=== PATIENT | male | born 1970 | race Caucasian/White ===

== ENCOUNTER 2018-01-20 19:56 | Emergency (ER) | payer SELFPAY ==
[2018-01-20 20:06] VITALS: BP 143/79; PULSE 67; RESP 20; TEMP 36.8; O2SAT 99
[2018-01-20] MEDS: Normal Saline 1,000 ML 1000 ML IV (20:20)
--- NOTE | 2018-01-20 20:22 | DI.CT_ITS ---
SYMPTOMS/DIAGNOSIS: RIGHT LOWER QUADRANT ABDOMINAL PAIN, VOMITING CT EXAMINATION OF THE ABDOMEN AND PELVIS: The study was carried out according to the usual protocol with intravenous administration of 100 cc of Omnipaque 350. No acute abnormality is noted in the lower thorax. The liver is normal. The gallbladder is normal. There are no stones or ductal dilatation. The pancreas, and spleen, and adrenals and kidneys are normal. There is no evidence of bowel obstruction or mucosal thickening. The appendix is normal. As visualized, the bladder is unremarkable. The reproductive organs as visualized are unremarkable. There is no evidence of free air or free fluid in the intraperitoneal space. No acute bony abnormality is seen. The soft tissues are unremarkable. There is no evidence of an aortic aneurysm. There is no evidence of an acute bony abnormality. SUMMARY: No evidence of an acute abdomen.
[2018-01-20 20:30] LABS: Abs Immature Grans 0.03 k/cumm (0.0-0.09); Absolute Eosinophil Count 0.21 k/cumm (0.0-0.7); Absolute Lymphocyte Count 3.79 k/cumm (1.2-3.4); Basophils % 0.3; Eosinophils % 1.8; HCT 48.1 % (40.0-50.0); HGB 16.6 g/dL (13.5-17.5); Immature Grans % 0.3; Lymphocytes % 32.5; Mean Corp. HGB Concentration 34.5 g/dL (32.0-36.0); Mean Corpuscular Hemoglobin 32.2 pg (27.0-33.0); Mean Corpuscular Volume 93.4 fL (80-95); Mean Platelet Volume 10.5 fL (8.0-11.0); Monocytes % 9.3; Neutrophils % 55.8; Platelet Count 213 x1000/uL (130-400); RBC 5.15 m/cumm (4.50-6.00); RBC Distribution Width 13.2 % (11.8-14.1); White Blood Cell Count 11.67 k/cumm (4.4-10.8)
[2018-01-20 20:31] LABS: Absolute Basophil Count 0.04 k/cumm (0.0-0.2); Absolute Monocyte Count 1.09 k/cumm (0.11-0.7); Absolute Neutrophil Count 6.51 k/cumm (1.2-6.7)
[2018-01-20 20:42] LABS: ALT 29 U/L (12-78); AST 19 U/L (15-37); Albumin 3.5 g/dL (3.4-5.0); Alkaline Phosphatase 77 U/L (46-116); Anion Gap 10.1 mmol/L (3-11); BUN 12 mg/dL (7-18); Bilirubin, Total 0.5 mg/dL (0.2-1.0); CO2 28.9 mmol/L (21.0-32.0); CREATININE 1.05 mg/dL (0.70-1.30); Calcium 8.9 mg/dL (8.5-10.1); Chloride 103 mmol/L (98-107); Glucose 126 mg/dL (70-100); Lipase 403 U/L (73-393); Potassium 3.7 mmol/L (3.5-5.1); Sodium 142 mmol/L (136-145); Total Protein 7.4 g/dL (6.4-8.2)
[2018-01-20] MEDS: Ondansetron 4 MG/2 ML VIAL IVP (20:48)
--- NOTE | 2018-01-20 22:01 | ED.GENADUL_ITS ---
Discharge Plan Disposition Patient Disposition: HOME Condition: Good Discharge Details Chief Complaint: Abd Prob Clinical Impression: Abdominal pain, Constipation Primary Care Provider: NONE,NONE ED Provider: Med Khan Home Meds and New Rx's Prescriptions: New dicyclomine 10 mg capsule 10 mg PO QID Qty: 14 RF: 0 ondansetron HCl [Zofran] 4 mg tablet 4 mg PO TID PRN (Reason: nausea and vomiting) 5 Days Qty: 14 RF: 0 docusate sodium [Colace] 100 mg capsule 100 mg PO DAILY Qty: 90 RF: 0 Discharge Instructions Instructions: Constipation (ED), Abdominal Pain (ED) Additional Instructions: Please take the medication as directed. Please drink 8-10 cups of water per day. If you notice any worsening of your symptoms, or any new symptoms such as vomiting, diarrhea, fever, chills, shortness of breath, chest pain, numbness, weakness, or fainting , please return immediately to the emergency department for reevaluation. Please follow up with your primary care provider as soon as possible for reassessment and reevaluation. As always, it was a pleasure participating in your medical care today. Medical Decision Making This is a 47-year-old male with no past medical or surgical history who presents for evaluation of right lower quadrant pain for the last 3 days. It appears to be colicky and crampy in nature. Patient has no pain in the right upper quadrant. He does have a small superficial burn from where he had been placing a heating pad. Heating pad unfortunately had not been helping. Patient's appetite is notably decreased. He does complain of some significant constipation. Physical exam does demonstrate notable reproducible right lower quadrant pain. Out of concern for an appendicitis versus other acute intra- abdominal pathology we will get a CT scan to evaluate for any acute intra- abdominal process. We will control the patient's pain and rehydrate. 11:12pm Patient's laboratory workup has returned relatively benign. Minimally elevated white count 11.67, no bandemia. Electrolytes are normal, renal function is normal, lipase is minimally elevated at 403. Urinalysis shows minimal RBCs at 5 -10. No other significant laboratory abnormality. CT scan results demonstrate no evidence of urolithiasis, appendicitis, or acute intra-abdominal pathology. On reevaluation of the patient he has significantly improved and his clinical scenario. He has no reproducible tenderness on exam. He appears significantly improved after his initial medication and IV fluids. With a negative CT scan, a benign appearing laboratory workup, no signs of acute pathology, and a notably improved clinical presentation I do feel that he is safe for discharge home with close follow-up with PCP. We will get a new primary care provider for the patient. We discussed red flags for which patient is to return. We will give him stool softeners, as well as some Bentyl and Zofran. I have extensively reviewed the treatment plan and discharge instructions with the patient. I have addressed all patient concerns at this time. The patient was made aware of what symptoms to monitor for that would warrant a return to the emergency department. Discussed the plan with the patient, they demonstrate verbal understanding and agreement with our assessment and plan at this time. HPI General Date/Time Provider Initiated Documentation: 01/20/18 20:13 . HPI Narrative: This is a 47-year-old male with no past medical history who presents today for evaluation of abdominal pain. Patient states that for the last 3 days he has had pain in his right lower quadrant area. Been hurting so much that he has been using a rice pack on his right lower abdomen which is caused a small superficial burn. Patient states that the pain is crampy in sensation and severe at its worst. It comes and goes in severity. He has had associated vomiting, vomiting roughly once or twice per day. He also has associated constipation. He has been eating nothing because of his symptoms, last time he ate was yesterday. He denies any hematemesis, dysuria, fever, chills, chest pain, shortness of breath, numbness, tingling, weakness. There are no particular aggravating or relieving factors. He denies any previous abdominal surgeries. With the patient's hard stool he does note that he did have a small amount of bright red blood on his toilet paper when he wiped for his episode stool earlier, but no melanotic or sharron blood. No blood on the stool. Patient denies any history of colonoscopy. He takes no medications. He has no other complaints at this time. Related Data Home Medications Medication Instructions Recorded Confirmed dicyclomine 10 mg PO QID #14 cap 01/20/18 docusate sodium [Colace] 100 mg PO DAILY #90 cap 01/20/18 ondansetron HCl [Zofran] 4 mg PO TID PRN 5 Days #14 tab 01/20/18 Previous Rx's Medication Instructions Recorded dicyclomine 10 mg PO QID #14 cap 01/20/18 docusate sodium [Colace] 100 mg PO DAILY #90 cap 01/20/18 ondansetron HCl [Zofran] 4 mg PO TID PRN 5 Days #14 tab 01/20/18 Allergies Allergy/AdvReac Type Severity Reaction Status Date / Time Penicillins Allergy Unverified 01/20/18 20:55 General Stated Complaint: Abd Prob TONI: 3 Review of Systems Review of Systems All systems reviewed & are unremarkable except as noted in HPI and below PFSH Social History Smoking/Tobacco Use Status: Current every day Exam Narrative Exam Narrative: 1.Const: Well-nourished, Well-developed, appearing stated age 2.Eyes: PERRL, no conjunctival injection, and symmetrical lids. 3.ENT: Atraumatic external nose and ears. Moist MM. Neck: Symmetric, trachea midline, No thyromegaly. 4.CVS: +S1/S2, No murmurs or gallops. Peripheral pulses 2+ and equal in all extremities. Brisk capillary refill in all extremities. 5.RESP: Unlabored respiratory effort. Clear to auscultation bilaterally. No wheezes rales or rhonchi 6.GI: Soft, nondistended, no guarding or rebound, mild to moderate right lower quadrant abdominal tenderness on exam. Bowel sounds are present but decreased. No flank or CVA tenderness. Negative obturator and psoas sign. Negative heel strike test. Mild superficial first-degree burn over the patient's right lower quadrant of his abdomen. No scaling of the skin. No signs of discharge or fluid collection. The area of burn is synonymous with the area where his heated rice bag was placed. Negative Contreras sign. 7.MSK: Normocephalic/Atraumatic, Extremities w/o deformity or ttp No cyanosis or clubbing, Normal movement of all extremities 8.Skin: Warm, Dry. No rashes or lesions. 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 Sensation grossly intact, no focal neurologic deficits. 10.Psych: (AAO) x3. Appropriate mood and affect Course Vital Signs Temperature 36.8 C 01/20/18 20:06 Pulse 67 01/20/18 20:06 Respiratory Rate 20 01/20/18 20:06 Blood Pressure 143/79 H 01/20/18 20:06 Pulse Oximetry 99 01/20/18 20:06 Temperature 36.8 C 01/20/18 20:06 Temperature Source Skin 01/20/18 20:06 Pulse 67 01/20/18 20:06 Respiratory Rate 20 01/20/18 20:06 Respiratory Effort Non-Labored 01/20/18 20:51 Blood Pressure 143/79 H 01/20/18 20:06 Blood Pressure Position Sitting 01/20/18 20:06 Pulse Oximetry 99 01/20/18 20:06 Oxygen Delivery Method Room Air 01/20/18 20:06 Oxygen Flow Rate 0 01/20/18 20:06 Pain Level 6 01/20/18 20:06 Lab/Test Results Lab/Test Results: Laboratory Tests Range/Units 01/20/18 01/20/18 20:20 20:20 WBC (4.4-10.8) k/cumm 11.67 H RBC (4.50-6.00) m/cumm 5.15 Hgb (13.5-17.5) g/dL 16.6 Hct (40.0-50.0) % 48.1 MCV (80-95) fL 93.4 MCH (27.0-33.0) pg 32.2 MCHC (32.0-36.0) g/dL 34.5 RDW (11.8-14.1) % 13.2 Plt Count (130-400) x1000/uL 213 MPV (8.0-11.0) fL 10.5 Immature Gran % 0.3 Neutrophils % 55.8 Lymphocytes % 32.5 Monocytes % 9.3 Eosinophils % 1.8 Basophils % 0.3 Absolute Neutrophils (1.2-6.7) k/cumm 6.51 Absolute Lymphocytes (1.2-3.4) k/cumm 3.79 H Absolute Monocytes (0.11-0.7) k/cumm 1.09 H Absolute Eosinophils (0.0-0.7) k/cumm 0.21 Absolute Basophils (0.0-0.2) k/cumm 0.04 Sodium (136-145) mmol/L 142 Potassium (3.5-5.1) mmol/L 3.7 Chloride (98-107) mmol/L 103 Carbon Dioxide (21.0-32.0) mmol/L 28.9 Anion Gap (3-11) mmol/L 10.1 BUN (7-18) mg/dL 12 Creatinine (0.70-1.30) mg/dL 1.05 Estimated GFR/1.73 m2 (mL/min/1.73m2) >= 60.00 Glucose (70-100) mg/dL 126 H Calcium (8.5-10.1) mg/dL 8.9 Total Bilirubin (0.2-1.0) mg/dL 0.5 AST (15-37) U/L 19 ALT (12-78) U/L 29 Alkaline Phosphatase (46-116) U/L 77 Total Protein (6.4-8.2) g/dL 7.4 Albumin (3.4-5.0) g/dL 3.5 Lipase (73-393) U/L 403 H
[2018-01-20] MEDS: Omnipaque 350 MG/ML 100 ML BTL IJ (22:07)
[2018-01-20 22:14] VITALS: BP 131/65; PULSE 55; RESP 18; TEMP 36.9; O2SAT 97
[2018-01-20 22:17] LABS: Bilirubin Negative (Negative); Blood Moderate (Negative); Clarity Clear; Glucose Negative (Negative); Ketones Negative (Negative); Leukocyte Esterase Negative (Negative); Nitrite Negative (Negative); Urobilinogen 0.2 EU/dL (Up TO 0.2)
[2018-01-20 22:35] LABS: Bacteria Rare HPF (Negative); C & S Indicated? No; Casts Negative LPF (Negative); Crystals Negative HPF (Negative); Epithelial Cells Negative HPF (Negative); Mucus Negative (Negative); Other Cells Negative (Negative); WBC Negative HPF (0-5)
--- NOTE | 2018-01-20 22:42 | DI.VRAD_ITS ---
EXAM: CT Abdomen and Pelvis With Intravenous Contrast EXAM DATE/TIME: 01/20/2018 8:24 PM CLINICAL HISTORY: 47 years old, male; Pain; Abdominal pain; Localized; Right lower quadrant (rlq); Patient HX: Rlq pain with vomiting TECHNIQUE: Axial computed tomography images of the abdomen and pelvis with intravenous and oral contrast. Coronal and sagittal reformatted images were created and reviewed. COMPARISON: No relevant prior studies available. FINDINGS: Lower thorax: No acute findings. ABDOMEN: Liver: Normal. No mass. Gallbladder and bile ducts: Normal. No calcified stones. No ductal dilation. Pancreas: Normal. No ductal dilation. Spleen: Normal. No splenomegaly. Adrenals: Normal. No mass. Kidneys and ureters: Normal. No hydronephrosis. Stomach and bowel: Normal. No obstruction. No mucosal thickening. Appendix: A normal appendix is identified. PELVIS: Bladder: Unremarkable as visualized. Reproductive: Unremarkable as visualized. ABDOMEN and PELVIS: Intraperitoneal space: Normal. No free air. No significant fluid collection. Bones/joints: No acute fracture. No dislocation. Soft tissues: Unremarkable. Vasculature: Normal. No abdominal aortic aneurysm. Lymph nodes: Normal. No enlarged lymph nodes. IMPRESSION: No evidence of acute abdominopelvic pathology. Dictated and Authenticated by: Nate Contreras MD. Ordering:DANIELA LUNA MD
[2018-01-20 23:14] VITALS: BP 133/73; PULSE 50; RESP 20; TEMP 36.9; O2SAT 96
[2018-01-20] MEDS: Dicyclomine 10 MG CAP PO (23:36)
== END 2018-01-20 23:38 | disposition home or self-care (01) ==
PROVIDERS: Emergency Provider Student in an Organized Health Care Education/Training Program
DX: K59.00 Constipation, unspecified (principal)
CPT/HCPCS: 36415; 80053; 83690; 96361; 96374; 99285; 74177; 81003; 81015; 85025; 99284; J2405; J3490

== ENCOUNTER 2018-10-18 13:19 | Emergency (ER) | payer SELFPAY ==
[2018-10-18 13:23] VITALS: BP 134/73; PULSE 62; RESP 16; TEMP 37.2; O2SAT 96
--- NOTE | 2018-10-18 13:43 | ED.GENADUL_ITS ---
Discharge Plan Disposition Patient Disposition: HOME Condition: Stable Discharge Details Chief Complaint: Cellulitis Clinical Impression: Ingrown toenail of right foot with infection Primary Care Provider: None,None ED Provider: James Hermosillo Home Meds and New Rx's Prescriptions: New cephalexin 500 mg tablet 500 mg PO QID 5 Days Qty: 20 RF: 0 Discharge Instructions Instructions: Paronychia (ED) Additional Instructions: Continue to perform Epson salt soaks 4 times daily for the next 4 days. As tolerated by discomfort you may peel the edges of the skin back from the nail. You should call the podiatry office on Saturday for arrangement of follow-up appointment. Return immediately to the emergency department for any new or significant worsening of symptoms or not improving the next 48 hours. Referrals: Se Velazquez DPM [[facility] STAFF PHYSICIAN] - 1 week (Call the office for arrangement of follow-up appointment) Discharge Data Discharge Date/Time-TO BE ENTERED AT DEPARTURE: 10/18/18 15:30 Medical Decision Making Patient presenting the emergency department for chief complaint of right toe pain. Patient states that one week ago he noted some significant discomfort to his right toe that is worsened specifically over the past 2 to 3 days. Patient had been doing intermittent Epson salt soaks with no improvement. Patient does state proximally 3 to 4 weeks ago he did suffer a puncture wound to the bottom of his foot that was appropriately cleaned and is healing well but is unsure of his tetanus status and also requesting a tetanus shot. Physical exam shows significant erythema and swelling to the distal toe with streaking redness to the dorsal aspect of the base of the great toe and distal dorsal foot. Exam of the puncture wound shows well-healed healing puncture wound with no purulence, no induration, no erythema, no signs of infection given significant swelling and induration to the great toe plan to do radiological imaging rule out any osteomyelitis. Review of radiological imaging shows soft tissue swelling, given overlying cellulitis through the base of the foot I do not feel that it is prudent to perform digital block or anesthesia of the toe for any toenail excision at this point. I do feel that patient should be placed on antibiotics before co nsideration of partial nail removal. Patient placed on Keflex after discussion of penicillin allergy which she states was a kid and otherwise he has not had any other reaction to antibiotics but does not know which antibiotics he is taking in the past. Patient's tetanus was updated. Return precautions were discussed. After discussion of diagnosis and plan of care patient has no further needs, questions, or concerns and states clear understanding to return to the emergency department for any worsening symptoms. HPI General Mode of arrival: ambulatory . Date/Time Provider Initiated Documentation: 10/18/18 13:21 . Limitations to Documentation: no limitations . Information obtained by: patient . History of Present Illness 47 year old M presents to the emergency department with the chief complaint of toe infection, described as moderate, with intensity rated at 10 (with palpation of distal L great toe). Quality is described as sharp, and is localized to the left and lower extremity (great toe). Patient reports no radiation. Patient started experiencing this week(s) (1 week) and it has been constant. No relieving factors improve symptom(s), Movement worsens symptoms . Patient notes no other symptoms.. Patient did receive the following treatments prior to arrival, other (epsom salts) Related Data Home Medications Medication Instructions Recorded Confirmed cephalexin 500 mg PO QID 5 Days #20 tab 10/18/18 Previous Rx's Medication Instructions Recorded cephalexin 500 mg PO QID 5 Days #20 tab 10/18/18 Allergies Allergy/AdvReac Type Severity Reaction Status Date / Time Penicillins Allergy Unknown Unverified 10/18/18 13:31 General Stated Complaint: Cellulitis TONI: 3 Review of Systems Constitutional Reports system reviewed and no additional complaints, except as docu, Denies chills, Denies fever(s) and Denies weakness Comments: has been in good health otherwise, no chronic conditions Cardiovascular Reports system reviewed and no additional complaints, except as docu and Denies chest pain Musculoskeletal Reports joint swelling (and redness to L great toe) and Denies numbness Neurologic Denies numbness and Denies weakness Hematologic/Lymphatic Denies easy bleeding, Denies easy bruising and Denies lymphadenopathy ON LICENSE OF [facility] Social History Smoking/Tobacco Use Status: Current every day Alcohol Intake: current Alcohol Intake frequency: holidays/special occasions only Alcohol type: beer Drug use: Daily Substance use type: marijuana Do you feel safe at home: Yes Do you feel safe in your relationship?: Yes Exam Const General: cooperative, healthy appearing, comfortable, no acute distress, well developed and well groomed Nutritional Appearance: average body habitus Orientation: alert and oriented x3 Resp Effort & Inspection: normal respiratory effort and able to speak in complete sentences Auscultation: clear to auscultation bilaterally Cardio Rate: regular rate Rhythm: regular rhythm Heart Sounds: S1 normal, S2 normal, no click, no gallops, no murmurs and no rubs Pulses: posterior tibial pulses present Skin Rashes: no rashes Trauma: puncture (healed to ball of L foot) Neuro Motor: muscle tone normal throughout Sensory Exam: normal double simultaneous stimulation Extrem General: no clubbing, cyanosis or edema and no pedal edema Right lower extremity: normal capillary refill and foot (with lesion to L distal toe lateral to nail, no drainage or bleeding) Details: normal capillary refill, tenderness, warmth and edema; no cyanosis Course Vital Signs Temperature 37.2 C 10/18/18 13:23 Pulse 62 10/18/18 13:23 Respiratory Rate 16 10/18/18 13:23 Blood Pressure 134/73 10/18/18 13:23 Pulse Oximetry 96 10/18/18 13:23 Temperature 37.2 C 10/18/18 13:23 Temperature Source Temporal Artery Scan 10/18/18 13:23 Pulse 62 10/18/18 13:23 Respiratory Rate 16 10/18/18 13:23 Respiratory Effort Non-Labored 10/18/18 13:28 Blood Pressure 134/73 10/18/18 13:23 Blood Pressure Position Sitting 10/18/18 13:23 Pulse Oximetry 96 10/18/18 13:23 Oxygen Delivery Method Room Air 10/18/18 13:23 Oxygen Flow Rate 0 10/18/18 13:23 Pain Level 8 10/18/18 13:23
--- NOTE | 2018-10-18 14:07 | DI.RAD_ITS ---
SYMPTOM/DIAGNOSIS: GREAT TOE INFECTION RIGHT FOOT: Three views. No acute fracture, dislocation, lytic or sclerotic lesion is seen. No radiographic findings are seen to suggest acute osteomyelitis. There does appear to be soft tissue swelling of the great toe. No radiopaque foreign bodies are seen in the soft tissues. IMPRESSION: Soft tissue swelling about the great toe. No radiographic findings to suggest osteomyelitis.
[2018-10-18] MEDS: Cephalexin 500 MG CAP PO (15:14)
--- NOTE | 2018-10-18 15:50 | DI.VRAD_ITS ---
EXAM: XR Right Foot Complete EXAM DATE/TIME: 10/18/2018 2:08 PM CLINICAL HISTORY: 47 years old, male; Pain; Foot and toes; Right; Patient HX: ? Infected big toe, swelling and redness extending into metatarsals. TECHNIQUE: Imaging protocol: XR Right foot. Views: 3 or more views. COMPARISON: No relevant prior studies available. FINDINGS: Bones/joints: There is no obvious osteomyelitis of the right great toe. There is no fracture or dislocation. The bone mineralization is normal. Soft tissues: There soft tissue swelling of the right foot and great toe. IMPRESSION: Soft tissue swelling of the right foot and great toe. No obvious osteomyelitis. Dictated and Authenticated by: Mireya Conway MD. Ordering:RUY Ramirez MD
== END 2018-10-18 15:30 | disposition home or self-care (01) ==
PROVIDERS: Emergency Provider Nurse Practitioner Family
DX: L03.115 Cellulitis of right lower limb (principal); L60.0 Ingrowing nail
CPT/HCPCS: 90471; 99284; 73630

== ENCOUNTER 2019-11-27 14:30 | Emergency (ER) | payer SELFPAY ==
[2019-11-27 14:35] VITALS: BP 170/95; PULSE 68; RESP 20; TEMP 36.6; O2SAT 99
[2019-11-27] MEDS: EPINEPHrine 1 MG/ML AMP pres-free 0.3 MG IM (14:38)
[2019-11-27] MEDS: diphenhydrAMINE 50 MG/ML VIAL IVP (14:40)
[2019-11-27] MEDS: methylPREDNISolone SUCC 125 MG VIAL IVP (14:40)
[2019-11-27] MEDS: FAMOTIDINE 20 MG/50 ML BAG 200 MG IVPB (14:45)
[2019-11-27 14:52] VITALS: BP 142/76; PULSE 54; RESP 24; O2SAT 97
[2019-11-27 15:01] VITALS: BP 144/68; PULSE 53; RESP 22; O2SAT 96
--- NOTE | 2019-11-27 15:02 | ED.GENADUL_ITS ---
Discharge Plan Disposition Patient Disposition: HOME Condition: Stable Discharge Details Chief Complaint: Allergic Clinical Impression: Anaphylaxis due to hymenoptera venom Primary Care Provider: None,None ED Provider: Kurtis Camp Home Meds and New Rx's Prescriptions: New diphenhydramine HCl [Benadryl Allergy] 25 mg tablet 25 mg PO TID PRNQty: 14 RF: 0 prednisone 20 mg tablet 40 mg PO DAILY Qty: 8 RF: 0 epinephrine [EpiPen 2-Ilia] 0.3 mg/0.3 mL auto-injector 0.3 mg IM ONCE PRN (Reason: anaphylaxis) Qty: 1 RF: 0 Discharge Instructions Instructions: Anaphylaxis (ED) Additional Instructions: Please use Benadryl 25 mg every 8 hours for next 3 days. Take prednisone as prescribed. Use EpiPen if you are stung and have anaphylactic reaction in the future. Please contact your primary care physician to arrange follow-up. Return to the ER for any worsening or new concerning symptoms. Discharge Data Discharge Date/Time-TO BE ENTERED AT DEPARTURE: 11/27/19 18:48 Medical Decision Making -- 48-year-old male presents after bee sting to his left lower lip with swollen lip, lightheadedness and sensation of throat feeling itchy. Concern for acute anaphylaxis. Patient in critical condition on arrival. Patient was given IM epinephrine, Solu-Medrol, Benadryl and Pepcid as well as IV fluid bolus. -- Patient reassessed multiple times and has had significant improvement in swelling and itchiness feels much better. -- Patient observed in the emergency department for 4 hours and remains symptom- free with no return of swelling. Plan to discharge on Benadryl, prednisone and with an EpiPen. HPI General Mode of arrival: ambulatory . Date/Time Provider Initiated Documentation: 11/27/19 14:38 . Limitations to Documentation: no limitations . Information obtained by: patient . HPI Narrative: 48-year-old male presents with chief complaint of bee sting to his left lower lip with swollen lip that occurred just prior to arrival. Swelling is severe. Worsening. No modifiers. Patient notes associated lightheadedness and sensation of throat feeling itchy. Patient denies shortness of breath. Related Data Home Medications Medication Instructions Recorded Confirmed diphenhydramine HCl [Benadryl 25 mg PO TID PRN #14 tab 11/27/19 Allergy] epinephrine [EpiPen 2-Ilia] 0.3 mg IM ONCE PRN #1 each 11/27/19 prednisone 40 mg PO DAILY #8 tab 11/27/19 Previous Rx's Medication Instructions Recorded diphenhydramine HCl [Benadryl 25 mg PO TID PRN #14 tab 11/27/19 Allergy] epinephrine [EpiPen 2-Ilia] 0.3 mg IM ONCE PRN #1 each 11/27/19 prednisone 40 mg PO DAILY #8 tab 11/27/19 Allergies Allergy/AdvReac Type Severity Reaction Status Date / Time venom-wasp Allergy Severe Swelling/Ed Unverified 11/27/19 14:49 luis Penicillins Allergy Unknown Unverified 11/27/19 14:49 General Stated Complaint: Allergic TONI: 1 Review of Systems Narrative: Review of systems limited secondary to acuity of condition Constitutional Constitutional: Denies fever(s) ENT Ears, Nose, Mouth, and Throat: Reports as per HPI and Reports dizziness Cardiovascular Cardiovascular: Denies chest pain Respiratory Respiratory: Reports as per HPI Gastrointestinal Gastrointestinal: Denies vomiting Integumentary/Breasts Skin/Breast: Denies rash Neurologic Neurologic: Reports dizziness [facility] Social History Smoking/Tobacco Use Status: Current every day Alcohol Intake: current Alcohol Intake frequency: holidays/special occasions only Alcohol type: beer Drug use: Daily Substance use type: marijuana Do you feel safe at home: Yes Do you feel safe in your relationship?: Yes Exam Const General: cooperative HENMT Face and sinus: other (Left cheek swollen) Mouth: moist mucous membranes, lip abnormal (Swelling) and other Throat: posterior oropharynx normal Eyes Conjunctivae: normal conjunctivae Sclera: normal sclerae Neck Neck: trachea midline and supple Resp Auscultation: clear to auscultation bilaterally, no rales, no rhonchi and no wheezes Cardio Jugular venous pressure: no JVD Rate: regular rate and not tachycardic Rhythm: regular rhythm GI Palpation: soft, not firm, no guarding, no masses, not rigid and nontender Skin General skin exam: no rashes or lesions noted Neuro General: patient alert, patient awake and tone normal Extrem General: no edema Psych Appearance: grossly normal Mental Status: mental status grossly normal Course Vital Signs Vital signs: Vital Signs Temperature 36.6 C 11/27/19 14:35 Pulse 68 11/27/19 14:35 Respiratory Rate 20 11/27/19 14:35 Blood Pressure 170/95 H 11/27/19 14:35 Pulse Oximetry 99 11/27/19 14:35 Temperature 36.6 C 11/27/19 14:35 Temperature Source Skin 11/27/19 14:35 Pulse 53 L 11/27/19 15:01 Pulse Rhythm Regular 11/27/19 15:01 Pulse Strength Normal 11/27/19 15:01 Respiratory Rate 22 11/27/19 15:01 Respiratory Effort 11/27/19 15:01 Respiratory Depth Normal 11/27/19 15:01 Respiratory Pattern Normal 11/27/19 15:01 Blood Pressure 144/68 H 11/27/19 15:01 Blood Pressure Mean 93 11/27/19 15:01 Blood Pressure Position Sitting 11/27/19 14:35 Pulse Oximetry 96 11/27/19 15:01 Oxygen Delivery Method Room Air 11/27/19 15:01 Oxygen Flow Rate 0 11/27/19 15:01 Pain Level 2 11/27/19 15:01 Critical Care Time Critical Care Time Critical Care Time: Yes Total Critical Care Time: 45 Attestation: I spent greater than 45 minutes addressing this patient's immediate life threats. Please see MDM section of note. This time was spent engaged in work directly related to the patient's care, exclusive of separate procedures, and failure to initiate these interventions would have likely resulted in clinically significant or life threatening deterioration in the patient's condition.
[2019-11-27] MEDS: Lactated Ringers 500 ML IV (15:03)
[2019-11-27 15:22] VITALS: BP 131/53; PULSE 53; RESP 20; O2SAT 98
--- NOTE | 2019-11-27 16:48 | CMPROGNOTE_ITS ---
- If Service Date Differs Date of service: 11/27/19 Time of Service: 16:48 Care Management Progress Note CM coordinates referral to Joanne Chappell NP, on-call provider, of [facility], to assist patient in obtaining a follow-up appointment and establishing with a PCP. CM also faxes referral to [facility] to enlist their assistance in exploring insurance options with patient as he is currently uninsured.
[2019-11-27 17:04] VITALS: BP 102/80; PULSE 62; RESP 18; O2SAT 96
[2019-11-27 18:45] VITALS: BP 108/63; PULSE 61; RESP 18; O2SAT 97
--- NOTE | 2019-11-28 13:58 | NUR.NOTE ---
Nursing Note: Prednisone prescription not signed, prescription called in to [facility]
== END 2019-11-27 18:48 | disposition home or self-care (01) ==
PROVIDERS: Emergency Provider Student in an Organized Health Care Education/Training Program
DX: T63.451A Toxic effect of venom of hornets, accidental (unintentional), initial encounter (principal); T78.2XXA Anaphylactic shock, unspecified, initial encounter; R42 Dizziness and giddiness; R09.89 Other specified symptoms and signs involving the circulatory and respiratory systems; R22.0 Localized swelling, mass and lump, head; Z91.030 Bee allergy status
CPT/HCPCS: 96361; 96365; 96372; 96375; 99291; J0171; J1200; J2930

== ENCOUNTER 2020-04-11 19:12 | Emergency (ER) | payer SELFPAY ==
[2020-04-11] VITALS (14 sets, daily range): BP systolic 150–182; BP diastolic 85–111; PULSE 61–113; RESP 15–18; TEMP 36.7; O2SAT 87–96
--- NOTE | 2020-04-11 19:15 | DI.RAD_ITS ---
EXAM: XR PELVIS AP CLINICAL HISTORY: trauma. TECHNIQUE: 2D digital imaging was performed. COMPARISON: CR LUMBAR SPINE COMPLETE from 07/23/2017 FINDINGS: BONES: No acute fracture is present. No bony destructive lesion is seen. The iliac crest were not inc luded on this examination. JOINTS: No dislocation present. No joint space narrowing is present. SOFT TISSUE: Heterotopic ossification is seen superior to the right greater trochanter. IMPRESSION: Limited examination of the pelvis with no evidence of an acute fracture. DATA REPOSITORY: RADIATION DOSE DELIVERED:
--- NOTE | 2020-04-11 19:30 | DI.RAD_ITS ---
EXAM: XR FEMUR LT CLINICAL HISTORY: trauma, pain. TECHNIQUE: 2D digital imaging was performed. COMPARISON: No exams were available for comparison FINDINGS: BONES: No acute fracture is present. No bony destructive lesion is seen. Visualized portion of knee a nd hip joints are unremarkable. SOFT TISSUE: Normal. IMPRESSION: Unremarkable radiographs of the left femur. DATA REPOSITORY: RADIATION DOSE DELIVERED:
[2020-04-11 19:49] LABS: Abs Immature Grans 0.06 10^3/uL (0.0-0.06); Absolute Basophil Count 0.06 10^3/uL (0.0-0.2); Absolute Eosinophil Count 0.07 10^3/uL (0.0-0.7); Absolute Lymphocyte Count 2.73 10^3/uL (1.2-3.4); Absolute Neutrophil Count 10.98 10^3/uL (1.2-6.7); Basophils % 0.4; Eosinophils % 0.5; HCT 50.6 % (40.0-50.0); HGB 17.3 g/dL (13.5-17.5); Immature Grans % 0.4; Lymphocytes % 18.3; MCHC 34.2 % (32.0-36.0); MCV 93.5 fL (80-95); MPV 10.7 fL (8.0-11.0); Monocytes % 6.7; Neutrophils % 73.7; Nucleated RBC 0 %; Platelet Count 226 10^3/uL (130-400); RBC 5.41 10^6/uL (4.36-5.78); RDW 12.2 % (11.8-14.1); RDW-SD 42.4 fL
[2020-04-11] MEDS: Normal Saline Flush 10 ML SYR IVP (19:54)
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
[2020-04-11 20:00] LABS: Prothrombin Time 10.4 sec (9.3-11.0)
--- NOTE | 2020-04-11 20:05 | DI.VRAD_ITS ---
PROCEDURE INFORMATION: Exam: XR Left Femur Exam date and time: 04/11/2020 7:53 PM Age: 49 years old Clinical indication: Injury or trauma; Fall; Work related; Crushing; Upper leg; Left; Injury date: 04/11/20; Injury details: Leg caught between truck and plow TECHNIQUE: Imaging protocol: XR Left femur. Views: 2 views. COMPARISON: No relevant prior studies available. FINDINGS: Bones/joints: Femur is intact. Knee and hip joints are grossly normal. Normal osseous mineralization. Soft tissues: Unremarkable soft tissues. IMPRESSION: Negative exam. No acute fracture. Dictated and Authenticated by: Leander Taylor MD. Ordering:HUANG Nath MD
--- NOTE | 2020-04-11 20:06 | DI.VRAD_ITS ---
PROCEDURE INFORMATION: Exam: XR Pelvis Exam date and time: 04/11/2020 7:53 PM Age: 49 years old Clinical indication: Injury or trauma; Other: Leg caught between truck and plow; Work related; Blunt trauma (contusions or hematomas); Does not apply; Hip; Injury date: 04/11/20; Injury details: Thigh pain after leg caught between plow and truck TECHNIQUE: Imaging protocol: XR pelvis. Views: 1 or 2 view. COMPARISON: CT ABDOMEN PELVIS W 01/20/2018 9:40 PM FINDINGS: Bones/joints: Iliac crests are not well evaluated, due to patient body habitus. No acute fracture. Bilateral hip joint spacing and alignment are anatomic. Normal osseous mineralization. Soft tissues: Heterotopic ossification superior to the right greater trochanter. IMPRESSION: Limited exam of the pelvis with no evidence of acute fracture. Dictated and Authenticated by: Leander Taylor MD. Ordering:HUANG Nath MD
[2020-04-11 20:12] LABS: ALT 30 U/L (16-63); AST 22 U/L (15-37); Albumin 4.2 g/dL (3.4-5.0); Alkaline Phosphatase 89 U/L (46-116); Anion Gap 8.8 mmol/L (3-11); BUN 7 mg/dL (7-18); Bilirubin, Total 0.5 mg/dL (0.2-1.0); CO2 26.2 mmol/L (21.0-32.0); CREATININE 0.96 mg/dL (0.70-1.30); Calcium 9.2 mg/dL (8.5-10.1); Chloride 102 mmol/L (98-107); Glucose 104 mg/dL (74-106); Potassium 3.3 mmol/L (3.5-5.1); Sodium 137 mmol/L (136-145); Total Protein 8.1 g/dL (6.4-8.2)
[2020-04-11] MEDS: Nicotine 21 MG/24 HR PATCH TD (21:13)
== END 2020-04-11 21:24 ==
PROVIDERS: Emergency Provider Student in an Organized Health Care Education/Training Program
DX: S77.12XA Crushing injury of left thigh, initial encounter (principal); R60.0 Localized edema; W23.1XXA Caught, crushed, jammed, or pinched between stationary objects, initial encounter; R20.2 Paresthesia of skin
CPT/HCPCS: 36415; 73552; 80053; 86850; 86900; 86901; 96374; 96376; 99285; 72170; 85025; 85610

== ENCOUNTER 2021-01-24 12:40 | Emergency (ER) | payer SELFPAY ==
[2021-01-24 12:44] VITALS: BP 170/105; PULSE 60; RESP 16; TEMP 36.9; O2SAT 100
--- NOTE | 2021-01-24 13:00 | DI.RAD_ITS ---
Exam(s) XR FOOT LT COMPLETE EXAM: XR FOOT LT COMPLETE CLINICAL HISTORY: Medial pain. TECHNIQUE: 2D digital imaging was performed of the left foot. Three images were obtained. AP, obli que and lateral views were obtained. COMPARISON: No exams were available for comparison FINDINGS: BONES: No acute fracture is present. No bony destructive lesion is seen. Small plantar calcaneal spur . Small enthesophyte at the Achilles insertion site. JOINTS: No dislocation present. SOFT TISSUE: Soft tissue swelling of the forefoot IMPRESSION: Soft tissue swelling of the forefoot. DATA REPOSITORY: RADIATION DOSE DELIVERED:
--- NOTE | 2021-01-24 13:00 | DI.US_ITS ---
Exam(s) US LOWER EXTREMITY VENOUS LT EXAM: US LOWER EXTREMITY VENOUS LT CLINICAL HISTORY: intermittent swelling TECHNIQUE: Left lower extremity venous ultrasound performed using grayscale, color-flow, and spectra l Doppler analysis. COMPARISON: No exams were available for comparison FINDINGS: The left common femoral, femoral and popliteal veins demonstrate normal compressibility, augmentation , and color Doppler. The posterior tibial veins are patent. The saphenofemoral junction is unremarka ble. There is no evidence of a Singleton cyst. The soft tissues are unremarkable. IMPRESSION: No DVT. DATA REPOSITORY:
--- NOTE | 2021-01-24 13:07 | ED.GENADUL_ITS ---
Discharge Plan Disposition Patient Disposition: HOME Condition: Improving Discharge Details Clinical Impression: Acute gout of left foot Primary Care Provider: Unknown,Unknown ED Provider: Man Black Home Meds and New Rx's Prescriptions: New prednisone 50 mg tablet 50 mg PO DAILY 5 Days Qty: 5 RF: 0 colchicine 0.6 mg tablet 0.6 mg PO DAILY 3 Days Qty: 3 RF: 0 Continued diphenhydramine HCl [Benadryl Allergy] 25 mg tablet 25 mg PO TID PRNQty: 14 RF: 0 epinephrine [EpiPen 2-Ilia] 0.3 mg/0.3 mL auto-injector 0.3 mg IM ONCE PRN (Reason: anaphylaxis) Qty: 1 RF: 0 Discharge Instructions Instructions: Gout (ED) Additional Instructions: May use walking boot as needed for comfort. May apply ice to area to reduce discomfort. May use Tylenol as needed for pain. Take prednisone and colchicine as prescribed. Follow-up with regular doctor if not improving in 5 to 7 days time. Medical Decision Making 42-year-old male presents with the insidious onset of left foot pain over weeks time. He notes he did have a traumatic injury to the left leg last winter but seems to have recovered from this. Now with weeks of pain with weightbearing on the left foot. Denies new injury. Has not had a fever, redness, or violation of the skin in that area. He is in some pain and hypertensive on initial exam but otherwise unremarkable vital signs. Exam is reassuring. Would exclude un derlying occult fracture, gout, exclude DVT with history of swelling and consider arthritis as the etiology of the patient's pain. He had screening blood work, referred for x-ray, ultrasound. CRP and uric acid are elevated. Ultrasound negative for thrombus. X-ray without evidence of fracture. Most consistent with gouty arthritis. I will place him on 3 days of colchicine and a small burst of prednisone. Will offer short walking boot simply for comfort. He understands need for follow-up if not improving. HPI General Mode of arrival: ambulatory . Date/Time Provider Initiated Documentation: 01/24/21 12:41 . Limitations to Documentation: no limitations . Information obtained by: patient . History of Present Illness 50 year old M presents to the emergency department with the chief complaint of Left foot pain for weeks, no trauma, Quality is described as dull and constant, and is localized to the left and lower extremity. Patient reports no radiation. Patient started experiencing this week(s) and it has been intermittent. Rest improves symptom(s), Other factors that worsen symptoms (Weightbearing) . Patient notes rash; denies fever/chills. Patient did receive the following treatments prior to arrival, none Related Data Home Medications Medication Instructions Recorded Confirmed diphenhydramine HCl [Benadryl 25 mg PO TID PRN #14 tab 11/27/19 01/24/21 Allergy] epinephrine [EpiPen 2-Ilia] 0.3 mg IM ONCE PRN #1 each 11/27/19 01/24/21 colchicine 0.6 mg PO DAILY 3 Days #3 tab 01/24/21 prednisone 50 mg PO DAILY 5 Days #5 tab 01/24/21 Previous Rx's Medication Instructions Recorded diphenhydramine HCl [Benadryl 25 mg PO TID PRN #14 tab 11/27/19 Allergy] epinephrine [EpiPen 2-Ilia] 0.3 mg IM ONCE PRN #1 each 11/27/19 colchicine 0.6 mg PO DAILY 3 Days #3 tab 01/24/21 prednisone 50 mg PO DAILY 5 Days #5 tab 01/24/21 Allergies Allergy/AdvReac Type Severity Reaction Status Date / Time venom-wasp Allergy Severe Swelling/Ed Unverified 01/24/21 12:50 luis Penicillins Allergy Unknown Unverified 01/24/21 12:50 General Stated Complaint: Orthopedic TONI: 3 Review of Systems Narrative: Has had some intermittent swelling of the left foot. Traumatic injury to that leg this winter. No chest pain or shortness of breath. No rash or fever. No new injury. 8 systems reviewed and otherwise negative [facility] Social History Smoking/Tobacco Use Status: Current every day Tobacco Type: cigarettes Smoking risk assessment performed?: Yes Alcohol Intake: current Alcohol Intake frequency: holidays/special occasions only Alcohol type: beer Drug use: Daily Substance use type: marijuana Do you feel safe at home: Yes Do you feel safe in your relationship?: Yes Exam Narrative Exam Narrative: GEN: awake, alert, oriented 3. Pleasant, well groomed, interactive. HEAD: Normocephalic, atraumatic EYES: PERRL, EOMI NECK: Full ROM, no NNEKA, no menigismus CHEST/RESP: Nontender, clear to auscultation bilateral, no wheeze/rhonchi/rales CARDIOVASCULAR: RRR, no murmur, rub mp. 2+ Rad pulse bilateral EXT: Full ROM, trace edema left medial foot. Tender along left medial arch of the foot. No cords appreciated. 2+ DP bilaterally. No overlying erythema. Neuro: Grossly normal neurologic exam, conversant, interactive. Psych: Speech fluent, thoughts congruent, affect normal Course Vital Signs Vital signs: Vital Signs Temperature 36.9 C 01/24/21 12:44 Pulse 60 01/24/21 12:44 Respiratory Rate 16 01/24/21 12:44 Blood Pressure 170/105 H 01/24/21 12:44 Pulse Oximetry 100 01/24/21 12:44 Temperature 36.9 C 01/24/21 12:44 Temperature Source Skin 01/24/21 12:44 Pulse 60 01/24/21 12:44 Respiratory Rate 16 01/24/21 12:44 Respiratory Effort Non-Labored 01/24/21 12:44 Blood Pressure 170/105 H 01/24/21 12:44 Blood Pressure Position Sitting 01/24/21 12:44 Pulse Oximetry 100 01/24/21 12:44 Oxygen Delivery Method Room Air 01/24/21 12:44 Oxygen Flow Rate 0 01/24/21 12:44 Pain Level 7 01/24/21 12:44
[2021-01-24 13:20] LABS: Abs Immature Grans 0.03 10^3/uL (0.0-0.06); Absolute Basophil Count 0.06 10^3/uL (0.0-0.2); Absolute Eosinophil Count 0.16 10^3/uL (0.0-0.7); Absolute Monocyte Count 0.62 10^3/uL (0.1-0.8); Absolute Neutrophil Count 4.98 10^3/uL (1.2-6.7); Basophils % 0.7; Eosinophils % 1.8; HCT 54.6 % (40.0-50.0); HGB 18.4 g/dL (13.5-17.5); Immature Grans % 0.3; Lymphocytes % 33.1; MCH 31.8 pg (27.0-33.0); MCHC 33.7 % (32.0-36.0); MCV 94.3 fL (80-95); MPV 10.4 fL (8.0-11.0); Monocytes % 7.1; Nucleated RBC 0 %; Platelet Count 201 10^3/uL (130-400); RBC 5.79 10^6/uL (4.36-5.78); RDW 12.4 % (11.8-14.1); RDW-SD 43.5 fL; WBC 8.75 10^3/uL (4.4-10.8)
[2021-01-24 13:30] LABS: Anion Gap 4.9 mmol/L (3-11); BUN 7 mg/dL (7-18); C-Reactive Protein 0.38 mg/dL (0.0-0.3); CO2 32.1 mmol/L (21.0-32.0); Calcium 9.4 mg/dL (8.5-10.1); Chloride 103 mmol/L (98-107); Glucose 106 mg/dL (74-106); Potassium 3.8 mmol/L (3.5-5.1); Sodium 140 mmol/L (136-145); Uric Acid 7.6 mg/dL (3.5-7.2)
== END 2021-01-24 14:52 | disposition home or self-care (01) ==
PROVIDERS: Emergency Provider Emergency Medicine
DX: M10.9 Gout, unspecified (principal)
CPT/HCPCS: 80048; 99284; 73630; 84550; 85025; 86140; 93971; 99283

== ENCOUNTER 2022-12-25 04:40 | Emergency (ER) | payer SELFPAY ==
[2022-12-25 04:44] VITALS: BP 178/92; PULSE 72; RESP 16; TEMP 36.5; O2SAT 98
--- NOTE | 2022-12-25 04:45 | ED.GENADUL_ITS ---
Discharge Plan Disposition Patient Disposition: Home Condition: Good Discharge Details Clinical Impression: Infrapatellar bursitis of left knee Primary Care Provider: Unknown,Unknown ED Provider: Michelle Wheeler Home Meds and New Rx's Prescriptions: Continued diphenhydramine HCl [Benadryl Allergy] 25 mg tablet 25 mg PO TID PRNQty: 14 0RF epinephrine [EpiPen 2-Ilia] 0.3 mg/0.3 mL auto-injector 0.3 mg IM ONCE PRN (Reason: anaphylaxis) Qty: 1 0RF Rx Instructions: as a single dose Discharge Instructions Instructions: Knee Bursitis (ED) Additional Instructions: Leave the knee dressing on to decrease swelling and help the inflammation. Take ibuprofen 600 mg every 6 hours as needed for pain. Ice 20 minutes on and 20 minutes off for the next 48 hours should help as well. No ladder or stair climbing and when she keeps the leg straight. Use the crutches as needed. Recheck with your primary care doctor as needed. Return to ED for fever of 100.4 or above, any other concerns. Stand Alone Forms: Work Release Medical Decision Making Diagnosis discussed with the patient. He will take ibuprofen and ice the knee as discussed. Crutches with touchdown weightbearing. Avoid bending the left knee. Recheck with PCP as needed. HPI General Date/Time Provider Initiated Documentation: 12/25/22 04:44 . HPI Narrative: This 52-year-old male patient presents with a chief complaint of left knee pain that began yesterday. The patient states that the day before he was playing with his grandson on his knees sometime. He says at 1 point it felt like he was kneeling on the leg or with his left knee. 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 He did take some ibuprofen prior to going to work yesterday. He states that last night he started to get sore. He tried some ice without relief. He did not take any additional ibuprofen or Tylenol. He decided to come to the ER for evaluation. He points to his infrapatellar region as the area where it hurts. There is no fever or redness. Related Data Home Medications Medication Instructions Recorded Confirmed diphenhydramine HCl 25 mg tablet 25 mg PO TID PRN #14 tabs 11/27/19 12/25/22 (Benadryl Allergy) epinephrine 0.3 mg/0.3 mL 0.3 mg (0.3 mL) IM ONCE PRN 11/27/19 12/25/22 injection, auto-injector (EpiPen anaphylaxis #1 ea 2-Ilia) Previous Rx's Medication Instructions Recorded diphenhydramine HCl 25 mg tablet 25 mg PO TID PRN #14 tabs 11/27/19 (Benadryl Allergy) epinephrine 0.3 mg/0.3 mL 0.3 mg (0.3 mL) IM ONCE PRN 11/27/19 injection, auto-injector (EpiPen anaphylaxis #1 ea 2-Ilia) Allergies Allergy/AdvReac Type Severity Reaction Status Date / Time venom-wasp Allergy Severe Swelling/Ed Unverified 12/25/22 04:50 luis Penicillins Allergy Unknown Unverified 12/25/22 04:50 General TONI: 3 Review of Systems Musculoskeletal Musculoskeletal: Denies joint swelling and Denies numbness Integumentary/Breasts Skin/Breast: Denies erythema Neurologic Neurologic: Denies numbness PFSH All Active Problems Acute gout of left foot (Acute) Infrapatellar bursitis of left knee (Acute) Social History Smoking/Tobacco Use Status: Current every day Tobacco Type: cigarettes Smoking risk assessment performed?: Yes Alcohol Intake: current Alcohol Intake frequency: holidays/special occasions only Alcohol type: beer Drug use: Daily Substance use type: marijuana Do you feel safe at home: Yes Do you feel safe in your relationship?: Yes Exam Const General: healthy appearing Nutritional Appearance: well nourished Orientation: alert and awake [facility] Head: normocephalic and atraumatic Eyes Conjunctivae: conjunctivae normal Neck Neck: supple Resp Effort & Inspection: normal respiratory effort Skin General skin exam: other (PWD) Neuro General: patient alert and patient awake Motor: other (good ROM) Sensory Exam: no sensory deficits noted Extrem Left lower extremity: normal to inspection (no erythema though ant knee mildly warmer than R side) and knee ( Pt with TTP/fullness infrapatella; tight MCL,LCL,ACL,PCL, neg McM/ballotme)
[2022-12-25] MEDS: Ibuprofen 600 MG TAB PO (05:08)
== END 2022-12-25 05:19 | disposition home or self-care (01) ==
LOC: ER 05:24
PROVIDERS: Emergency Provider Emergency Medicine
DX: M70.52 Other bursitis of knee, left knee (principal); M10.9 Gout, unspecified
CPT/HCPCS: 99283

== ENCOUNTER 2024-02-04 18:28 | Emergency (ER) | payer SELFPAY ==
[2024-02-04 18:35] VITALS: BP 190/95; PULSE 58; RESP 15; TEMP 37; O2SAT 95
[2024-02-04 18:41] VITALS: BP 190/95; PULSE 58; RESP 15; TEMP 37; O2SAT 95
--- NOTE | 2024-02-04 18:52 | W.ED.GENAD ---
Discharge Plan Disposition Patient Disposition: Home Condition: Stable Discharge Details Clinical Impression: Chemosis of left conjunctiva Primary Care Provider: Unknown,Unknown ED Provider: Med Álvarez Home Meds and New Rx's Prescriptions: Continued epinephrine [EpiPen 2-Ilia] 0.3 mg/0.3 mL auto-injector 0.3 mg IM ONCE PRN (Reason: anaphylaxis) Qty: 1 0RF Rx Instructions: as a single dose Discharge Instructions Instructions: Erythromycin (Ophthalmic), Foreign Body in Eye ED Additional Instructions: You were seen in the emergency department for the significant allergic reaction/chemosis of your left eye with edema in both eyelid and the subconjunctiva. There was no visible foreign body or corneal ulceration or abrasion, we did provide you with 2 more doses of tetracaine, use 1 drop in the left eye before bed and 1 drop upon awakening. Please follow-up with [facility] eye care first thing in the morning. Please use the provided erythromycin ointment 4 times per day for 5 days in the left eye, it will feel much better to cover and perform cool compresses of the left eye while sleeping at night. Should you experience any significant increase in swelling or any jellylike discharge of the eye or loss of vision please present to an emergency department immediately with ophthalmology capability. Referrals: [facility], [facility] [Outside] HPI General Date/Time Provider Initiated Documentation: 02/04/24 18:41. HPI Narrative: 53 year-old male presents to ED today by POV/ambulating with a chief complaint of L eye pain, foreign body possible exposure while taking down a ceiling today- around 1330. Quality described as blurry vision, swelling diffusely around the conjunctiva of the left eye with redness, no radiation to sick discharge, loss of vision, ophthalmoplegia, headache, fever, known chemical exposure. Severity is described as severe. Palliating factors include he jabbed the eye with a white paper towel, did not perform any flushing. Provoking factors include taking down the ceiling without safety glasses. Patient not anticoagulated. Related Data Home Medications ?Medication ?Instructions ?Recorded ?Confirmed epinephrine 0.3 mg/0.3 mL 0.3 mg (0.3 mL) IM ONCE PRN 11/27/19 02/04/24 injection, auto-injector (EpiPen anaphylaxis #1 ea 2-Ilia) Previous Rx's ?Medication ?Instructions ?Recorded epinephrine 0.3 mg/0.3 mL 0.3 mg (0.3 mL) IM ONCE PRN 11/27/19 injection, auto-injector (EpiPen anaphylaxis #1 ea 2-Ilia) Allergies Allergy/AdvReac Type Severity Reaction Status Date / Time venom-wasp Allergy Severe Swelling/Ed Unverified 02/04/24 18:43 luis Penicillins Allergy Unknown Anaphylaxis Unverified 02/04/24 18:43 General Stated Complaint: EyeProblem TONI: 3 Review of Systems All systems reviewed & are unremarkable except as noted in HPI and below Exam Narrative Exam Narrative: GENERAL APPEARANCE: Well-nourished, non-toxic, awake and alert, atraumatic, no acute distress. SKIN: Warm, pink, dry, intact, without rashes/lesions/ulcerations. HEAD: Normocephalic, atraumatic, normal hair distribution for gender/age. EYES: No exudates on lids/lashes, OS: shows no corneal ulceration or abrasion or foreign body on fluorescein eye exam, EOMs are intact and pupils are PERRLA, he does have chemosis of the lower half of his eye in the subconjunctival and as well as allergic conjunctivitis in the lower eyelid ENT: Nares patent, no circumoral cyanosis, no facial swelling NECK: Supple, trachea midline, painless cervical ROM. LUNGS/CHEST: Non-labored respirations, normal A/P diameter, symmetrical expansion, no chest wall deformity HEART (CV/PV): No peripheral edema, no JVD. ABDOMEN: Soft, non-distended, no guarding. MSK: Normal ROM, no swelling/deformity to bilateral UEs or LEs, moving all extremities without weakness, no cyanosis, spine midline without tenderness, normal curvature. NEURO: Mental Status AAOx4 - alert to person, place, time, events No facial droop, no forehead involvement. Motor: No focal weakness - strength 5/5 in bilateral UEs and LEs, proximal and distal, symmetric. Sensory: sensation intact to light touch globally. Gait normal: patient ambulated without ataxia into ED room. PSYCH: euthymic, cooperative, pleasant, appropriate speech Course Vital Signs Vital signs: Vital Signs Temperature 37.0 C 02/04/24 18:35 Pulse 58 L 02/04/24 18:35 Respiratory Rate 15 02/04/24 18:35 Blood Pressure 190/95 H 02/04/24 18:35 Pulse Oximetry 95 02/04/24 18:35 Temperature 37.0 C 02/04/24 18:41 Pulse 58 L 02/04/24 18:41 Respiratory Rate 15 02/04/24 18:41 Respiratory Effort Normal 02/04/24 18:41 Blood Pressure 190/95 H 02/04/24 18:41 Blood Pressure Position Sitting 02/04/24 18:41 Pulse Oximetry 95 02/04/24 18:41 Oxygen Delivery Method Room Air 02/04/24 18:41 Oxygen Flow Rate 0 02/04/24 18:35 Medical Decision Making This dictation utilizes [id number] dictation software and may contain unedited grammatical errors. 53 year-old male presents to ED today by POV/ambulating with a chief complaint of L eye pain, foreign body possible exposure while taking down a ceiling today- around 1330. Quality described as blurry vision, swelling diffusely around the conjunctiva of the left eye with redness, no radiation to sick discharge, loss of vision, ophthalmoplegia, headache, fever, known chemical exposure. Severity is described as severe. Palliating factors include he jabbed the eye with a white paper towel, did not perform any flushing. Provoking factors include taking down the ceiling without safety glasses. Patients' medical history: Gout. Family and social history: Noncontributory. Pertinent exam findings / vital signs include OS: shows no corneal ulceration or abrasion or foreign body on fluorescein eye exam, EOMs are intact and pupils are PERRLA, he does have chemosis of the lower half of his eye in the subconjunctival and as well as allergic conjunctivitis in the lower eyelid. Differential / pathologies of concern include allergic conjunctivitis, corneal foreign body, corneal ulceration, chemosis. Diagnostic studies of: -Fluorescein eye exam-no foreign body or ulceration seen. Interventions of: -Provided the patient with flush after fluorescein eye exam as well as erythromycin ointment and scheduled him for follow-up ap [facility] eye care tomorrow. ED Course/Assessment/Plan: 53-year-old male presents with significant left eye swelling, allergic conjunctivitis of lower eyelid as well as chemosis of the left lower subconjunctival, he did not perform any flushing after he got something in his eye while taking down a drop ceiling without eye protection, he has been significantly rubbing it and did use a white paper towel to try and get what ever foreign body got in his eye out. I provided reassurance that he is likely having a bit of allergic edema to the area but that he needs to immediately present to an ER with ophthalmology capability should he have loss of vision or acute worsening overnight. I did provide him with erythromycin ointment and recommend he perform patching and cool compress and follow-up with [facility] eye care tomorrow. I did have EM Attending Dr. Delgado see the patient and he agreed with care plan. Findings not consistent with globe rupture, corneal burn or ulcer, loss of vision. Disposition of chemosis of left conjunctiva. Patient verbalized understanding of the plan and return to ED criteria and engaged in shared decision making. Medical Records Medical records reviewed: Yes I reviewed the patient's medical records. Quality:SDOH Health Related Social Needs: No Data to Display PFSH All Active Problems (Updated 02/04/24 @ 19:23 by EDE Oliver) Chemosis of left conjunctiva (Acute) Acute gout of left foot (Acute) Social History Smoking/Tobacco Use Status: Current every day Tobacco Type: cigarettes Smoking risk assessment performed?: Yes Alcohol Intake: current Alcohol Intake frequency: holidays/special occasions only Alcohol type: beer Drug use: Daily Substance use type: marijuana Do you feel safe at home: Yes Do you feel safe in your relationship?: Yes PAWSS Have you Been Recently Intoxicated or Drunk Within the Last 30 days?: No Have you Ever Experienced Previous Episodes of Alcohol Withdrawal?: No Have you ever Experienced Withdrawal Seizures?: No Have you ever Experienced Delirium Tremens(DT)s?: No Have you ever undergone Alcohol Rehabilitation Treatment (i.e, inpt ot outpatient treatment programs)?: No Have you ever Experienced Blackouts?: No Have you ever Combined Alcohol with other Downers within the last 90 days?: No Have you ever Combined Alcohol with any other Substance of Abuse during the last 90 days?: No Positive Blood Alcohol level on Presentation? [PCS.BAL]: No Evidence of Increased Autonomic Activity (i.e. HR>120, tremor, sweating, agitation, nausea)?: No Result: 0
[2024-02-04] MEDS: Tetracaine 0.5% 4 ML BTL (20:10)
[2024-02-04] MEDS: Balanced Salt Solution 15 ML BTL OP (20:10)
[2024-02-04] MEDS: Fluorescein STRIPS 100/BOX 1 MG OP (20:10)
[2024-02-04] MEDS: Erythromycin Ophth Oint 3.5 GM TUBE OP (20:10)
== END 2024-02-04 20:11 | disposition home or self-care (01) ==
LOC: ER 19:46
PROVIDERS: Emergency Provider Physician Assistant
DX: H11.422 Conjunctival edema, left eye (principal); F17.210 Nicotine dependence, cigarettes, uncomplicated
CPT/HCPCS: 99283

== ENCOUNTER 2024-07-29 09:42 | Emergency (ER) | payer SELFPAY ==
--- NOTE | 2024-07-29 09:45 | DI.RAD_ITS ---
Exam(s) XR KNEE LT 4V AP,LAT,COLEEN,PAT EXAM: XR KNEE LT 4V AP,LAT,COLEEN,PAT CLINICAL HISTORY: L knee pain, swelling, warmth. TECHNIQUE: 2D digital imaging was performed of the left knee. Four images were obtained. Merchant, AP, lateral and PA tunnel views were obtained. COMPARISON: No exams were available for comparison FINDINGS: BONES: No acute fracture is present. No bony destructive lesion is seen. JOINTS: The knee is normally aligned. No joint effusion is seen. Mild spurring of the posterior polk la. The articular surfaces are otherwise well maintained. SOFT TISSUE: There density seen in the soft tissues. There is edema seen in the soft tissues anterio r to the patella. IMPRESSION: 1. Mild degenerative changes of the knee. 2. Mild soft tissue swelling anterior to the knee. DATA REPOSITORY: RADIATION DOSE DELIVERED:
[2024-07-29 09:48] VITALS: BP 188/119; PULSE 91; RESP 18; TEMP 36.6; O2SAT 99
--- NOTE | 2024-07-29 10:01 | W.ED.GENAD ---
Discharge Plan Disposition Patient Disposition: Home Discharge Details Clinical Impression: Elevated blood pressure reading, Bursitis of left knee Primary Care Provider: Unknown,Unknown ED Provider: Chen Allred Home Meds and New Rx's Prescriptions: No Action epinephrine [EpiPen 2-Ilia] 0.3 mg/0.3 mL auto-injector 0.3 mg IM ONCE PRN (Reason: anaphylaxis) Qty: 1 0RF Rx Instructions: as a single dose Discharge Instructions Instructions: Bursitis ED Additional Instructions: A referral has been placed for you to establish care with a primary care provider in the area. Care management will call you to help you set up appointment. Please have your blood pressure rechecked within the next week. I recommend either going to the primary care provider's office for nurse visit or Express Care in [facility]. For bursitis I recommend they use an Leon bandage, elevate your knee above heart level, apply ice for 15 to 20 minutes at a time every hour or two, and use an Leon bandage or compression sleeve for discomfort and to help with swelling. If you need to be doing work on your knees, I recommend using kneepads to help prevent pressure on your knees. Return to emergency care if you develop new fever/chills, worsening redness/swelling of knee, inability to bend or extend knee, chest pain, episodes of dizziness/feel like you have passed out, chest pain, or if you are very worried and need to be rechecked again immediately Referrals: Care Management [Provider Group] HPI General Date/Time Provider Initiated Documentation: 07/29/24 09:50. HPI Narrative: Francisco is a 53year old male who presents to the emergency department today for evaluation of left knee pain. He reports that 6 days ago he was doing danial, with a lot of kneeling and standing/bending down. Since then he has experienced swelling, warmth, and pain to the front of his knee that is exacerbated with flexion. He is able to weight-bear, but limps when walking and is only able to partially bear weight. Denies associated fever/chills, general malaise, distal numbness/tingling, other injury. He does not currently have a PCP, says that he has had elevated blood pressure readings in the past but has not had these checked out. Denies associated dizziness, chest pain, shortness of breath, change in urine output. Denies significant past medical history or surgery to this knee. He has been using ice at night. Occasionally uses ibuprofen with good improvement. Physical exam remarkable for diffuse swelling to the anterior knee with tenderness and warmth. No obvious erythema. Full extension (active and passive), flexion decreased to 90 degrees. No overlying lesions/abrasions. No fullness behind the knee. Full painless range of motion of hip and ankle. Ambulates with a limp, partial weightbearing. D/dx includes but is not limited to: Prepatellar bursitis, stress fracture, yeager's cyst rupture, Osteoarthritis, meniscal injury, tendinitis. No red flags concerning for septic joint. I independently interpreted the following tests: Left knee x-ray, no obvious fracture noted. This was confirmed by radiologist While in the emergency department, Francisco received ibuprofen for discomfort. Leon bandage was given for compression. I did discuss risks of hypertension with patient extensively, including risk of CVA, IL, and kidney dysfunction. He is agreeable with establishing care with PCP and having recheck of blood pressure within a week. Reviewed discharge instructions with patient, including symptomatic management and red flags indicating need for return to emergency care. A referral was placed to care management to establish care with primary care Related Data Home Medications ?Medication ?Instructions ?Recorded ?Confirmed epinephrine 0.3 mg/0.3 mL 0.3 mg (0.3 mL) IM ONCE PRN 11/27/19 02/04/24 injection, auto-injector (EpiPen anaphylaxis #1 ea 2-Ilia) Previous Rx's ?Medication ?Instructions ?Recorded epinephrine 0.3 mg/0.3 mL 0.3 mg (0.3 mL) IM ONCE PRN 11/27/19 injection, auto-injector (EpiPen anaphylaxis #1 ea 2-Ilia) Allergies Allergy/AdvReac Type Severity Reaction Status Date / Time venom-wasp Allergy Severe Swelling/Ed Unverified 07/29/24 09:51 luis Penicillins Allergy Unknown Anaphylaxis Unverified 07/29/24 09:51 General Stated Complaint: Orthopedic TONI: 4 Review of Systems Narrative: See HPI Exam Const General: cooperative, healthy appearing, comfortable, no acute distress and well developed Nutritional Appearance: average body habitus and well nourished Orientation: alert and oriented x3 Resp Effort & Inspection: normal respiratory effort and able to speak in complete sentences Skin General skin exam: no rashes or lesions noted Neuro General: tone normal Gait: antalgic (Favoring painful left knee) Motor: muscle tone normal throughout and strength 5/5 throughout Sensory Exam: no sensory deficits noted Extrem Right lower extremity: normal to inspection Left lower extremity: hip/thigh Details: normal to inspection and normal ROM, knee Details: tenderness, swelling (Diffuse anterior knee) and abnormal ROM (Decreased flexion, full extension), lower leg Details: normal to inspection and ankle Details: normal to inspection, no edema and normal ROM Course Vital Signs Vital signs: Vital Signs Temperature 36.6 C 07/29/24 09:48 Pulse 91 H 07/29/24 09:48 Respiratory Rate 18 07/29/24 09:48 Blood Pressure 188/119 H 07/29/24 09:48 Pulse Oximetry 99 07/29/24 09:48 Temperature 36.6 C 07/29/24 09:48 Temperature Source Oral 07/29/24 09:48 Pulse 91 H 07/29/24 09:48 Respiratory Rate 18 07/29/24 09:48 Blood Pressure 188/119 H 07/29/24 09:48 Blood Pressure Position Sitting 07/29/24 09:48 Pulse Oximetry 99 07/29/24 09:48 Oxygen Delivery Method Room Air 07/29/24 09:48 Oxygen Flow Rate 0 07/29/24 09:48 Pain Level 4 07/29/24 09:48 Medical Decision Making Imaging Data Radiologic Study: Radiologist's impression: Exam(s) XR KNEE LT 4V AP,LAT,COLEEN,PAT EXAM: XR KNEE LT 4V AP,LAT,COLEEN,PAT CLINICAL HISTORY: L knee pain, swelling, warmth. TECHNIQUE: 2D digital imaging was performed of the left knee. Four images were obtained. Merchant,AP, lateral and PA tunnel views were obtained. COMPARISON: No exams were available for comparison FINDINGS: BONES: No acute fracture is present. No bony destructive lesion is seen. JOINTS: The knee is normally aligned. No joint effusion is seen. Mild spurring of the posterior patella. The articular surfaces are otherwise well maintained. SOFT TISSUE: There density seen in the soft tissues. There is edema seen in the soft tissues anterior to the patella. IMPRESSION: 1. Mild degenerative changes of the knee. 2. Mild soft tissue swelling anterior to the knee. Quality:SDOH Health Related Social Needs: No Data to Display PFSH All Active Problems (Updated 07/29/24 @ 12:22 by Chen Lancaster) Bursitis of left knee (Acute) Elevated blood pressure reading (Acute) Acute gout of left foot (Acute) Social History Smoking/Tobacco Use Status: Current every day Tobacco Type: cigarettes Smoking risk assessment performed?: Yes Alcohol Intake: current Alcohol Intake frequency: holidays/special occasions only Alcohol type: beer Drug use: Daily Substance use type: marijuana Do you feel safe at home: Yes Do you feel safe in your relationship?: Yes
[2024-07-29] MEDS: Ibuprofen 600 MG TAB PO (10:20)
[2024-07-29 12:48] VITALS: BP 180/102; PULSE 55; RESP 16; O2SAT 97
== END 2024-07-29 12:48 | disposition home or self-care (01) ==
LOC: ER 11:09
PROVIDERS: Emergency Provider Nurse Practitioner Family
DX: M71.562 Other bursitis, not elsewhere classified, left knee (principal); F17.210 Nicotine dependence, cigarettes, uncomplicated
CPT/HCPCS: 99283; 73564

== ENCOUNTER 2024-08-09 05:01 | Emergency (ER) | payer MEDICAID, SELFPAY ==
[2024-08-09] VITALS (8 sets, daily range): BP systolic 144–187; BP diastolic 89; PULSE 57–84; RESP 18; TEMP 36; O2SAT 92–99
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
--- NOTE | 2024-08-09 05:15 | DI.RAD_ITS ---
Exam(s) XR KNEE LT 3V AP,LAT,COLEEN EXAM: XR KNEE LT 3V AP,LAT,COLEEN CLINICAL HISTORY: trauma. TECHNIQUE: 2D digital imaging was performed. Three views. COMPARISON: CR XR KNEE LT 4V AP,LAT,COLEEN,PAT from 07/29/2024 FINDINGS: BONES: There is a fracture at the upper 3rd of the patella with distraction of the superior fragment approximately 3.5 cm. There are few tiny comminuted fragments. The distal femur, proximal tibia an d fibula appear intact. No bony destructive lesion is seen. JOINTS: The knee is normally aligned. A large joint effusion is seen. SOFT TISSUE: Marked soft tissue swelling anterior and superior to the patella. IMPRESSION: Fracture of the upper pole of the patella with marked distraction. DATA REPOSITORY: RADIATION DOSE DELIVERED:
[2024-08-09] MEDS: Ketorolac 15 MG/ML VIAL IVP (05:35)
[2024-08-09] MEDS: MORPHine 4 MG/ML SYR IVP ×2 (05:35→06:43)
[2024-08-09 05:36] LABS: HCT 53.4 % (40.0-50.0); HGB 17.9 g/dL (13.5-17.5); MCH 31.9 pg (27.0-33.0); MCHC 33.5 % (32.0-36.0); MCV 95 fL (80-95); MPV 10.4 fL (8.0-11.0); Platelet Count 225 10^3/uL (130-400); RBC 5.62 10^6/uL (4.36-5.78); RDW-SD 45.9 fL; WBC 17.03 10^3/uL (4.4-10.8)
[2024-08-09 05:44] LABS: Anion Gap 8.2 mmol/L (3-11); BUN 13 mg/dL (7-18); CO2 27.8 mmol/L (21.0-32.0); CREATININE 0.9 mg/dL (0.70-1.30); Calcium 9.3 mg/dL (8.5-10.1); Chloride 101 mmol/L (98-107); Glucose 164 mg/dL (74-106); Potassium 4.7 mmol/L (3.5-5.1); Sodium 137 mmol/L (136-145)
--- NOTE | 2024-08-09 06:00 | DI.CT_ITS ---
Exam(s) CT LOWER EXTREMITY LT WO EXAM: CT LOWER EXTREMITY LT WO CLINICAL HISTORY: knee injury/patella fx. TECHNIQUE: Imaging Protocol: Axial computed tomography images with coronal and sagittal reformatted images were created and reviewed. CONTRAST MATERIAL: Noncontrast COMPARISON: CR,XR XR KNEE LT 3V AP,LAT,COLEEN from 08/09/2024 FINDINGS: Bones: There is a fracture extending mainly transversely at the upper 3rd of the patella . There is separation of the fragments by approximately 3 cm. There is a vertically oriented fracture, extendin g in the sagittal plane through the inferior pole of the patella with a few millimeters of separation . There are few tiny comminuted fragments. No cellulitic or osteomyelitic changes are identified. Small degenerative cyst is noted in the proxi mal tibia. No lytic or sclerotic lesions are identified. Joints: A moderate-sized joint effusion/hemarthrosis is present. There is no significant joint space narrowing. There is mild periarticular spurring. Soft Tissues: Severe of soft tissue swelling and hematoma involving the anterior soft tissues IMPRESSION: Comminuted distracted patellar fracture. Large associated soft tissue hematoma and joint effusion. RADIATION DOSE DELIVERED: Total DLP DATA REPOSITORY: All CT scans at this facility are submitted to the National Radiology Data Registry (NRDR) Dose Index Registry (DIR) with the [employer] (ACR). RADIATION OPTIMIZATION: All CT scans at this facility use at least one of these dose optimization te chniques: automated exposure control; mA and/or kV adjustment per patient size (includes targeted exa ms where dose is matched to clinical indication); or iterative reconstruction.
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
--- NOTE | 2024-08-09 07:13 | W.EDPROG ---
Date of service: 08/09/24 Time of Service: 07:13 Medical Decision Making I received signout on this 53-year-old male in the emergency department following a fall found to have closed comminuted fracture of his left patella for which he is pending Ortho consult updated today. I spoke to Dr. Morales from ortho at [facility]. He advised placing the patient in a locked knee brace in extension or a knee immobolizer in extension at all times the patient can be weightbearing as tolerated. He also advised aspirin 81 mg BID. I met with the patient. He was in the knee immobilizer. His pain was relatively controlled. I advised him that orthopedics from [facility] would call him tomorrow to arrange for outpatient surgical follow-up. He says that he will use [id number] aspirins. Will send him with a short course of oral opiates in addition to scheduled acetaminophen. Will advise that he should return for worsening pain fevers or difficulty moving foot. I advised that if he takes more than 1 oral opiate that he should consider taking a stool softener. 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 He has crutches in the car with him. Quality:[facility] Health Related Social Needs: No Data to Display Discharge Plan Disposition Patient Disposition: Home Discharge Details Clinical Impression: Closed comminuted fracture of left patella Primary Care Provider: Unknown,Unknown ED Provider: Jules Bettencourt Home Meds and New Rx's Prescriptions: New aspirin 81 mg capsule 81 mg PO BID Qty: 30 0RF Morphine Ir, 4 Tabs/Btl [Msir, 4 Tabs/Btl] 15 mg PO DISPENSE Qty: 4 0RF Continued acetaminophen 500 mg capsule 1,000 mg PO Q6H PRN (Reason: Left knee pain) ibuprofen 200 mg capsule 400 mg PO Q6H PRN (Reason: Left knee pain) losartan 50 mg tablet 50 mg PO DAILY Qty: 90 3RF epinephrine [EpiPen 2-Ilia] 0.3 mg/0.3 mL auto-injector 0.3 mg IM ONCE PRN (Reason: anaphylaxis) Qty: 1 0RF Rx Instructions: as a single dose Discharge Instructions Instructions: Patella Fracture Additional Instructions: You were seen in the emergency department for your knee pain. You are found to have a fracture of your patella for which you should wear this knee immobilizer at all times. You may bear weight as tolerated. [facility] orthopedic team will call you in the morning for follow-up tomorrow. If you develop pain in your foot cannot move your foot or have any other concerns please return to the emergency department. Please take 81 mg of aspirin twice a day to prevent blood clots. It you are receiving an additional medication you should take for pain. If you use more than 1 or 2 tablets of this additional medication please consider taking a stool softener as morphine can make you constipated. Please do not drive or drink alcohol after taking morphine. For your pain please take medications as follows: 1. Take acetaminophen (Tylenol), 1,000 mg (two 500 mg tabs) every 6 hours
[2024-08-09] MEDS: Aspirin 81 MG CHEW PO (07:34)
[2024-08-09] MEDS: MORPHine IR 15 MG TAB PO (07:35)
== END 2024-08-09 07:42 | disposition home or self-care (01) ==
PROVIDERS: Emergency Medicine; Emergency Provider Emergency Medicine
DX: S82.042A Displaced comminuted fracture of left patella, initial encounter for closed fracture (principal); W01.0XXA Fall on same level from slipping, tripping and stumbling without subsequent striking against object, initial encounter
CPT/HCPCS: 99284 ×2; 29505; 96374; 96375; 96376; 00123; 73562; 80048; 85027; 73700; J1885; J2270

== ENCOUNTER 2024-12-21 01:42 | Outpatient (CLI) | payer MEDICAID, SELFPAY ==
[2024-12-21 15:58] LABS: ALT 22 U/L (16-63); AST 14 U/L (15-37); Albumin 3.6 g/dL (3.4-5.0); Alkaline Phosphatase 86 U/L (46-116); Anion Gap 8.3 mmol/L (3-11); BUN 9 mg/dL (7-18); Bilirubin, Total 0.3 mg/dL (0.2-1.0); CO2 28.7 mmol/L (21.0-32.0); Calcium 9.2 mg/dL (8.5-10.1); Chloride 104 mmol/L (98-107); Estimated GFR 106.48 (mL/min/1.73m2); Glucose 76 mg/dL (74-106); Potassium 3.6 mmol/L (3.5-5.1); Sodium 141 mmol/L (136-145); Total Protein 7.4 g/dL (6.4-8.2); Uric Acid 7.1 mg/dL (3.5-7.2)
[2024-12-21 16:10] LABS: Calculated LDL 123 mg/dL (<100); Cholesterol 222 mg/dL (<200); HDL Cholesterol 32 mg/dL (>or=40); Triglyceride 338 mg/dL (<150)
== END 2024-12-21 01:43 | disposition home or self-care (01) ==
LOC: LBO 01:42
PROVIDERS: Visit Provider Family Medicine
DX: I10 Essential (primary) hypertension (principal)
CPT/HCPCS: 36415; 80053; 80061; 84550